=== PATIENT | female | born 1955 | race Caucasian/White ===

== ENCOUNTER 2022-02-26 07:30 | Day surgery (SDC) | payer OTHER ==
[2022-02-24 13:59] LABS: Absolute Lymphocytes (CBC) 2.6 K/uL (0.7-4.9); Hematocrit 39.1 % (36.0-45.0); MPV 7.4 fL (7.6-11.3); RBC Red Blood Cell Count 4.37 M/uL (3.86-4.86)
[2022-02-24 14:11] LABS: Protime INR 0.96
--- NOTE | 2022-02-24 14:11 | RAD REPORT ---
EXAM DESCRIPTION: RAD - Chest Pa And Lat (2 Views) - 02/24/2022 1:46 pm CLINICAL HISTORY: pre cath procedure Chest pain. COMPARISON: Chest Pa And Lat (2 Views) dated 07/28/2018; CHEST SINGLE VIEW dated 10/29/2015 FINDINGS: The lungs are clear. The heart is normal in size. No displaced fractures. Dual lead pacer device is present. IMPRESSION: No acute or concerning finding suspected.
[2022-02-24 14:17] LABS: Potassium 3.7 mmol/L (3.5-5.1)
--- NOTE | 2022-02-25 13:00 | EKG ---
Test Date: 2022-02-24 Test Time: 13:28:44 Manager Of Employee Relations: MARY MEASUREMENT RESULTS: Intervals: Rate: 67 NM: 352 QRSD: 140 QT: 468 QTc: 494 Lafferty: P: 64 NM: 352 QRS: -74 T: 105 INTERPRETIVE STATEMENTS: Sinus rhythm with 1st degree AV block Left axis deviation Nonspecific intraventricular block Inferior infarct, age undetermined Anterolateral infarct, age undetermined Abnormal ECG Compared to ECG 10/30/2015 08:48:32 First degree AV block now present Left-axis deviation now present Myocardial infarct finding still present Electronically Signed On 02-25-22 12:59:46 CDT by Beto Cabrera
[2022-02-26 08:16] VITALS: TEMP 97
[2022-02-26] MEDS ORDERED: NA CHLORIDE 0.9% 500 ML ONE (08:24)
[2022-02-26] MEDS ORDERED: LIDOCAINE 1% 20 ML MDV ONE (08:32)
[2022-02-26] MEDS ORDERED: HEPA 1000U/500MLS 1,000 UNIT/500 ML BAG IV ONE (08:32)
[2022-02-26] MEDS ORDERED: MIDAZOLAM HCL 2 MG/2 ML INJ ONE ×2 (08:35→08:51)
[2022-02-26] MEDS ORDERED: FENTANYL CITR 100 MCG/2 ML ONE (08:35)
[2022-02-26] MEDS ORDERED: NA CHLORIDE 0.9% 0 ML ONE (08:36)
[2022-02-26] MEDS ORDERED: ATROPINE SULF 1 MG/10 ML SYR IV ONE (08:36)
[2022-02-26 10:44] VITALS: BP 142/72; O2SAT 96
--- NOTE | 2022-02-26 20:01 | OP ---
Surgeon: Beto Cabrera MD [employer]ividend Dep[employer] Voucher Clerk: Ms. Bing Hartley. The patient remained in the hospital for 2 hours of bedrest after her Angio-Seal. She will go home a fter that and I will see her in the office in 2 weeks. Admitted on 02/26/2022 as an outpatient to the [facility]. Reason For Admission: Left heart catheterization, selective coronary arteriogram, common femoral art anmol angiogram. Indication: Positive stress test. Procedure In Detail: Ms. Sutton was brought to the [facility], prepped and draped in the routine sterile fashion. Given Versed and fentanyl for sedation. A 6-Danish sheath introduced in the right common femoral artery successfully using 10 cc of Xylocaine and the Seldinger technique. A common femoral a rtery angiogram was done revealing normal SFA, normal profunda, normal common femoral artery. Angio- Seal was used to close the case. Dinorah catheter left and right were used to cannulate the left harleen n and right main. She was found to have perfectly normal coronaries. The patient tolerated the proc edure well. Total conscious sedation was 30 minutes. There were no complications. Blood loss was 5 mL. Postoperative Diagnoses: Positive stress test. Normal coronaries. Continue medical therapy. NB/MODL Voice ID: [id number] Report ID: [id number]
== END 2022-02-26 11:01 | disposition home or self-care (01) ==
LOC: CCL 07:30
DX: R94.39 Abnormal result of other cardiovascular function study (principal); I35.1 Nonrheumatic aortic (valve) insufficiency; I49.5 Sick sinus syndrome; I44.0 Atrioventricular block, first degree; I10 Essential (primary) hypertension; E78.2 Mixed hyperlipidemia; E11.9 Type 2 diabetes mellitus without complications; K21.9 Gastro-esophageal reflux disease without esophagitis; E03.9 Hypothyroidism, unspecified; Z95.0 Presence of cardiac pacemaker; Z79.82 Long term (current) use of aspirin; Z79.899 Other long term (current) drug therapy; Z20.822 Contact with and (suspected) exposure to COVID-19
CPT/HCPCS: 93005; 85025; 80048; 36415; 85610; 85730; 71046; 93454; U0003; C1893; Q9966; C1760; G0269; J2250 ×2; J3010; J7040; J1644; J0583